=== PATIENT | female | born 1985 | race African-American/Black ===

== ENCOUNTER 2019-06-09 10:48 | Emergency (ER) | payer MEDICAID ==
[~2019-06-09] VITALS: Ht 170.2 cm; Wt 73.0 kg
[2019-06-09 10:51] VITALS: BP 126/79
== END 2019-06-09 12:53 | disposition home or self-care (01) ==
LOC: ER 11:11
DX: M79.641 Pain in right hand (principal); Z98.890 Other specified postprocedural states
CPT/HCPCS: 73130; 99283